=== PATIENT | male | born 1990 | race Caucasian/White ===

== ENCOUNTER 2023-10-29 14:51 | Emergency (ER) | payer SELFPAY ==
[~2023-10-29] VITALS: Ht 177.8 cm; Wt 90.9 kg
[2023-10-29 16:58] LABS: BASO % 0.4 % (0.0-1.0); EOS % 0.1 % (0.0-3.0); HEMATOCRIT 42.3 % (42.0-52.0); HEMOGLOBIN 15.1 g/dl (13.5-17.5); LYMPH # 0.3 10^3/uL (1.5-5.0); MEAN CORPUSCULAR HEMOGLOBIN 31.6 pg (27.0-33.0); MEAN CORPUSCULAR HGB CONC 35.7 g/dl (32.0-36.5); MEAN CORPUSCULAR VOLUME 88.5 fl (80.0-96.0); MONO # 1.1 10^3/uL (0.0-0.8); MONO % 12.5 % (2.0-8.0); NEUTROPHILS % 82.3 % (36.0-66.0); PLATELET COUNT, AUTOMATED 179 10^3/uL (150-450); RED BLOOD COUNT 4.78 10^6/uL (4.30-6.10); WHITE BLOOD COUNT 8.5 10^3/uL (4.0-10.0)
[2023-10-29 17:22] LABS: ALBUMIN 4.2 G/DL (3.2-5.2); BILIRUBIN,DIRECT 0.2 MG/DL (<0.4); BILIRUBIN,TOTAL 0.4 MG/DL (0.3-1.2); TOTAL PROTEIN 6.8 G/DL (5.7-8.2)
[2023-10-29] MEDS: METOCLOPRAMIDE INJ 10MG/2ML VIAL IV ONE (18:02)
[2023-10-29] MEDS: NS 1,000 ML IV ONE (18:02)
[2023-10-29 18:44] VITALS: BP 125/77; TEMP 98.1; O2SAT 95
== END 2023-10-29 18:47 | disposition home or self-care (01) ==
LOC: M ED 18:37
DX: U07.1 COVID-19 (principal); T50.905A Adverse effect of unspecified drugs, medicaments and biological substances, initial encounter; F41.9 Anxiety disorder, unspecified; F32.A Depression, unspecified; G47.33 Obstructive sleep apnea (adult) (pediatric); F17.200 Nicotine dependence, unspecified, uncomplicated; M54.30 Sciatica, unspecified side; Z91.018 Allergy to other foods
CPT/HCPCS: 70450; 80047; 80076; 83690; 85025; 87486; 87581; 87633; 87798; 96361; 96374; 99284; J2765

== ENCOUNTER 2025-07-10 13:00 | Emergency (ER) | payer OTHER ==
[~2025-07-10] VITALS: Ht 177.8 cm; Wt 91.2 kg
[2025-07-10] MEDS ORDERED: METH-1165 PO (15:37)
[2025-07-10] MEDS ORDERED: MEDR4PAK PO (15:37)
[2025-07-10 15:51] VITALS: BP 140/77; TEMP 98.1; O2SAT 98
== END 2025-07-10 16:03 | disposition home or self-care (01) ==
LOC: M ED 13:00
DX: S39.012A Strain of muscle, fascia and tendon of lower back, initial encounter (principal); X50.0XXA Overexertion from strenuous movement or load, initial encounter; M51.360 Other intervertebral disc degeneration, lumbar region with discogenic back pain only; F41.9 Anxiety disorder, unspecified; F32.A Depression, unspecified; F43.10 Post-traumatic stress disorder, unspecified; F17.200 Nicotine dependence, unspecified, uncomplicated; Z91.018 Allergy to other foods; Y92.009 Unspecified place in unspecified non-institutional (private) residence as the place of occurrence of the external cause; Y93.89 Activity, other specified; Y99.9 Unspecified external cause status; Z79.899 Other long term (current) drug therapy